=== PATIENT | female | born 1970 | race Caucasian/White ===

== ENCOUNTER 2016-06-18 19:23 | Inpatient (IN) | payer BC ==
[~2016-06-18] VITALS: Ht 157.5 cm; Wt 77.5 kg
[~2016-06-18 19:23] MED LIST: ADVAIR 250/501 DISK IH; ALEVE220 MG PO; BUSPAR10 MG PO; EFFEXOR XR75 MG PO; EFFEXOR25 MG PO; ENDOCET 5-3251 EACH PO; IBUPROFEN800 MG PO; KLONOPIN0.5 M1 PO; MOTRIN IB200 MG PO; NASONEX17 GM BOTH NARES; PHENTERMINE H37.5 MG PO; TOPAMAX25 MG PO; VYVANSE20 MG PO; Zithromax PO
[2016-06-18 20:02] LABS: HEMATOCRIT 35.6 % (36.0-46.0); MCH 29.3 PG (29.0-34.0); MCHC 32.9 G/DL (30.0-36.0); PLATELET COUNT 245 K/uL (156-360); RBC DIS.WIDTH-CV 12.7 % (11.8-14.6); RBC DIS.WIDTH-SD 39.8 % (39-53)
[2016-06-18 20:11] LABS: CHLORIDE 107 mEq/L (99-109); POTASSIUM 3.8 mEq/L (3.7-5.4); SODIUM 139 mEq/L (136-147)
[2016-06-18 20:13] LABS: GLUCOSE 94 mg/dL (70-99)
[2016-06-18 20:14] LABS: ANION GAP 7 MEQ/L (2-14)
[2016-06-18 20:15] LABS: TOTAL BILIRUBIN 0.6 mg/dL (0.0-1.0)
[2016-06-18 20:17] LABS: ALKALINE PHOSPHATASE 86 IU/L (3-129); GFR ESTIMATE (CALCULATED) > 59 mL/min/
[2016-06-18 20:18] LABS: UREA NITROGEN (BUN) 22 mg/dL (9-23)
[2016-06-18 20:20] LABS: LIPASE 19 U/L (1.0-51.0)
[2016-06-18 20:26] LABS: QUANTITATIVE HCG < 4.0 MIU/ML
[2016-06-18 20:27] LABS: ADD MIUA? YES; BILIRUBIN NEGATIVE; BLOOD LARGE; COLOR YELLOW ((YELLOW)); GLUCOSE (STRIP) NEGATIVE; KETONES NEGATIVE; LEUKOCYTES NEGATIVE; NITRITE NEGATIVE; PROTEIN (STRIP) NEGATIVE; SPECIFIC GRAVITY 1.024 (1.000-1.030)
[2016-06-18 20:42] LABS: BACTERIA RARE; CASTS NONE SEEN /LPF; CRYSTALS NONE SEEN; EPITHELIAL CELLS 1+; MUCUS RARE; UCUL ADDED? NO; WHITE BLOOD CELLS 0-5 /HPF (0-5)
[2016-06-19 00:34] VITALS: BP 128/72
[2016-06-19 07:37] VITALS: BP 114/68
[2016-06-19] MEDS ORDERED: IBUPROFEN600 MG PO (11:21)
[2016-06-19] MEDS ORDERED: PERCOCET 5/31 TABLET PO (11:21)
[2016-06-19] MEDS ORDERED: COLACE100 MG PO (11:21)
[2016-06-19 14:10] VITALS: BP 139/76
[2016-06-19 16:00] VITALS: BP 118/70
[2016-06-19 20:33] VITALS: BP 125/77
[2016-06-20 00:08] VITALS: BP 133/71
[2016-06-20 03:00] VITALS: BP 111/63
[2016-06-20 08:00] VITALS: BP 103/57
[2016-06-21] MEDS ORDERED: ADIPEX-P37.5 MG PO (16:20)
[2016-06-21] MEDS ORDERED: BUSPAR10 MG PO (16:20)
[2016-06-21] MEDS ORDERED: VYVANSE20 MG PO (16:21)
[2016-06-21] MEDS ORDERED: TOPAMAX25 MG PO (16:21)
== END 2016-06-20 11:22 | disposition home or self-care (01) | DRG 419 ==
LOC: RME 19:23 → EME 19:23 → 2EASTP 23:25 → EDOF 23:25 → 2EASTP 06-19 00:20
PROC: 0FT44ZZ Resection of Gallbladder, Percutaneous Endoscopic Approach (ICD-10-PCS; principal; 2016-06-19)
DX: K80.18 Calculus of gallbladder with other cholecystitis without obstruction (principal); F32.9 Major depressive disorder, single episode, unspecified; G43.909 Migraine, unspecified, not intractable, without status migrainosus; K58.9 Irritable bowel syndrome, unspecified
CPT/HCPCS: 76705; 80053; 81003; 83690; 84702; 85027; 88304; 93005; 99281; 99285; J0295; J0330; J0690; J1100; J1170; J2270; J2405; J2710; J2765; J3010; J7050; S0028

== ENCOUNTER 2016-06-21 14:05 | Inpatient (IN) | payer BC ==
[~2016-06-21] VITALS: Ht 157.5 cm; Wt 77.4 kg
[~2016-06-21 14:05] MED LIST changes: +COLACE100 MG PO; +IBUPROFEN600 MG PO; +PERCOCET 5/31 TABLET PO
[2016-06-21] MEDS ORDERED: BUSPAR10 MG PO (16:20)
[2016-06-21] MEDS ORDERED: ADIPEX-P37.5 MG PO (16:20)
[2016-06-21] MEDS ORDERED: TOPAMAX25 MG PO (16:21)
[2016-06-21] MEDS ORDERED: VYVANSE20 MG PO (16:21)
[2016-06-21 17:46] VITALS: BP 129/74
[2016-06-21 23:28] VITALS: BP 121/67
[2016-06-22 07:15] LABS: ALKALINE PHOSPHATASE 245 IU/L (3-129); ANION GAP 9 MEQ/L (2-14); CHLORIDE 108 MEQ/L (99-109); GFR ESTIMATE (CALCULATED) > 59 mL/min/; GLUCOSE 95 mg/dL (70-99); SAMPLE HEMOLYSIS CHECK 0; SAMPLE ICTERIC CHECK 1; SAMPLE LIPEMIA CHECK 0; SODIUM 142 MEQ/L (136-147); UREA NITROGEN (BUN) 9 mg/dL (9-23)
[2016-06-22 07:21] VITALS: BP 125/61
[2016-06-22 07:28] LABS: HEMATOCRIT 34.2 % (36.0-46.0); MCH 29.4 PG (29.0-34.0); MCHC 32.7 G/DL (30.0-36.0); MCV 89.8 FL (83-99); MEAN PLAT.VOLUME 11.1 uM^3 (9.5-12.4); PLATELET COUNT 211 K/uL (156-360); RBC DIS.WIDTH-SD 42.5 % (39-53); RED BLOOD COUNT 3.81 M/uL (3.80-5.20)
[2016-06-22 07:29] LABS: POTASSIUM 3.8 MEQ/L (3.7-5.4); TOTAL BILIRUBIN 3.4 MG/DL (0.0-1.0)
[2016-06-22 07:40] LABS: LIPASE 30 U/L (1.0-51.0)
[2016-06-22 07:43] LABS: AMYLASE 26 IU/L (1-118)
[2016-06-22 10:02] LABS: DIRECT BILIRUBIN 2.2 mg/dL (0.0-0.3); TOTAL BILIRUBIN 3.4 MG/DL (0.0-1.0)
[2016-06-22 15:27] VITALS: BP 135/75
[2016-06-22 20:59] VITALS: BP 143/72
[2016-06-22 23:36] VITALS: BP 118/59
[2016-06-23 05:24] VITALS: BP 139/60
[2016-06-23 06:49] LABS: HEMATOCRIT 33.5 % (36.0-46.0); MCH 28.5 PG (29.0-34.0); MCHC 31.9 G/DL (30.0-36.0); MCV 89.3 FL (83-99); MEAN PLAT.VOLUME 10.5 uM^3 (9.5-12.4); PLATELET COUNT 208 K/uL (156-360); RBC DIS.WIDTH-SD 41.8 % (39-53); RED BLOOD COUNT 3.75 M/uL (3.80-5.20); WHITE BLOOD COUNT 6.5 K/uL (4.1-10.2)
[2016-06-23 07:00] VITALS: BP 124/71
[2016-06-23 07:31] LABS: ALKALINE PHOSPHATASE 220 IU/L (3-129); AMYLASE 18 IU/L (1-118); ANION GAP 10 MEQ/L (2-14); CHLORIDE 105 MEQ/L (99-109); DIRECT BILIRUBIN 0.3 mg/dL (0.0-0.3); GFR ESTIMATE (CALCULATED) > 59 mL/min/; GLUCOSE 92 mg/dL (70-99); LIPASE 21 U/L (1.0-51.0); POTASSIUM 4.3 MEQ/L (3.7-5.4); SAMPLE HEMOLYSIS CHECK 0; SAMPLE ICTERIC CHECK 0; SAMPLE LIPEMIA CHECK 0; SODIUM 142 MEQ/L (136-147); UREA NITROGEN (BUN) 8 mg/dL (9-23)
[2016-06-23 07:43] LABS: ALKALINE PHOSPHATASE 213 IU/L (3-129)
[2016-06-23 07:44] LABS: DIRECT BILIRUBIN 0.3 mg/dL (0.0-0.3)
== END 2016-06-23 10:34 | disposition home or self-care (01) | DRG 444 ==
LOC: EME 14:05 → 5EAST 16:19 → EDOF 16:19 → 5EAST 17:47
PROVIDERS: Internal Medicine Gastroenterology; Surgery
DX: K83.8 Other specified diseases of biliary tract (principal); K85.90 Acute pancreatitis without necrosis or infection, unspecified; F32.9 Major depressive disorder, single episode, unspecified; Z87.891 Personal history of nicotine dependence
CPT/HCPCS: 36415; 74181; 74330; 80053; 80076; 82150; 82247; 82248; 83690; 85025; 85027; 87081; 99281; 99285; B4087; C1757; C1769; C9113; J0295; J0330; J1100; J1335; J1650; J2250; J2405; J3010; J7030; J7050; J7120